=== PATIENT | female | born 1950 | race Caucasian/White ===

== ENCOUNTER 2018-01-01 19:28 | Inpatient (IN) | payer OTHER, BC ==
[~2018-01-01] VITALS: Ht 153.7 cm; Wt 84.0 kg
[~2018-01-01 19:28] MED LIST: CALCIUM 500 MG1 EACH PO; COQ-10100 MG PO; HYDRO EYE PO; MULTIPLE VITAM1 EACH PO; OMEGA 3 500 SO1 EACH PO; RED YEAST RICE600 M1 PO; SUN CHLORELLA PO; TRANSDERM-SCO1 PATCH TD; TYLENOL EXTRA500 MG PO; VITAMIN D31000 UNIT PO; XANAX0.5 MG PO
[2018-01-02 12:24] VITALS: BP 157/82
[2018-01-02 20:42] LABS: MCH 28.2 PG (29.0-34.0); MCHC 32.4 G/DL (30.0-36.0); MCV 87.2 FL (83-99); PLATELET COUNT 195 K/uL (156-360); RBC DIS.WIDTH-CV 12.8 % (11.8-14.6); RBC DIS.WIDTH-SD 40.9 % (39-53); RED BLOOD COUNT 4.36 M/uL (3.80-5.20); WHITE BLOOD COUNT 10.2 K/uL (4.1-10.2)
[2018-01-02 20:50] VITALS: BP 139/65
[2018-01-02 21:00] LABS: HEMOGLOBIN 12.3 G/DL (11.9-15.5)
[2018-01-02 21:06] LABS: CHLORIDE 105 MEQ/L (99-109); CREATININE 0.9 MG/DL (0.6-1.3); GFR ESTIMATE (CALCULATED) > 59 mL/min/; GLUCOSE 180 mg/dL (70-99); SODIUM 139 MEQ/L (136-147); UREA NITROGEN (BUN) 13 mg/dL (9-23)
[2018-01-03 00:40] VITALS: BP 140/71
[2018-01-03 05:00] VITALS: BP 121/62
[2018-01-03 07:16] LABS: HEMATOCRIT 38.3 % (36.0-46.0); HEMOGLOBIN 12.6 G/DL (11.9-15.5); MCH 28.4 PG (29.0-34.0); MCHC 32.9 G/DL (30.0-36.0); MCV 86.5 FL (83-99); PLATELET COUNT 211 K/uL (156-360); RBC DIS.WIDTH-CV 12.8 % (11.8-14.6); RBC DIS.WIDTH-SD 40.9 % (39-53); RED BLOOD COUNT 4.43 M/uL (3.80-5.20); WHITE BLOOD COUNT 9.2 K/uL (4.1-10.2)
[2018-01-03 07:42] LABS: CHLORIDE 108 MEQ/L (99-109); CREATININE 0.9 MG/DL (0.6-1.3); GFR ESTIMATE (CALCULATED) > 59 mL/min/; GLUCOSE 142 mg/dL (70-99); POTASSIUM 4.3 MEQ/L (3.7-5.4); SODIUM 144 MEQ/L (136-147); UREA NITROGEN (BUN) 10 mg/dL (9-23)
[2018-01-03 08:17] VITALS: BP 149/69
== END 2018-01-03 09:30 | disposition home or self-care (01) | DRG 742 ==
LOC: ENRESERV 19:28 → 2SOUTH 01-02 10:41 → 2EAST 01-02 11:48 → 2SOUTH 01-02 12:13 → ENRESERV 01-02 16:26 → 2EAST 01-02 20:05
PROVIDERS: Obstetrics & Gynecology Gynecologic Oncology
PROC: 0UJHXZZ Inspection of Vagina and Cul-de-sac, External Approach (ICD-10-PCS; principal; 2018-01-02)
PROC: 0T788DZ Dilation of Bilateral Ureters with Intraluminal Device, Via Natural or Artificial Opening Endoscopic (ICD-10-PCS; principal; 2018-01-02)
PROC: 0UT70ZZ Resection of Bilateral Fallopian Tubes, Open Approach (ICD-10-PCS; principal; 2018-01-02)
PROC: 0UT20ZZ Resection of Bilateral Ovaries, Open Approach (ICD-10-PCS; principal; 2018-01-02)
DX: N83.202 Unspecified ovarian cyst, left side (principal); G89.29 Other chronic pain; R10.2 Pelvic and perineal pain; Q43.8 Other specified congenital malformations of intestine; K59.09 Other constipation; H01.009 Unspecified blepharitis unspecified eye, unspecified eyelid; H04.129 Dry eye syndrome of unspecified lacrimal gland; M81.0 Age-related osteoporosis without current pathological fracture; E55.9 Vitamin D deficiency, unspecified; R73.03 Prediabetes; E66.9 Obesity, unspecified; Z68.28 Body mass index [BMI] 28.0-28.9, adult
CPT/HCPCS: 36415; 80048; 85027; 86850; 86900; 86901; 86920; 88305; C1758; J0131; J0690; J1100; J1170; J2405; J2710; J2765; J2795; J3010; J7643